=== PATIENT | female | born 1940 | race Caucasian/White ===

== ENCOUNTER → 2016-12-10 11:59 | Outpatient (CLI) | payer MEDICARE, BC ==
[2011-01-05 13:34] VITALS: BMI 25.0
[~2016-12-10 11:59] MED LIST: BAYER CHEWABLE81 MG PO; CARAFATE1 G PO; GABAPENTIN100 MG PO; LOPRESSOR25 MG PO; METOPROLOL TART25 MG PO; NEXIUM40 MG PO; NORVASC10 MG PO; PRINIVIL10 MG PO; PROPAFENONE HC150 MG PO; VALIUM5 MG PO; ZOFRAN ODT4 MG/UDTAB PO
[2016-12-15 03:57] VITALS: BMI 25.1
== END | disposition home or self-care (01) ==
LOC: D.LAB 11:30
PROVIDERS: Internal Medicine Gastroenterology
DX: R19.7 Diarrhea, unspecified (principal)

== ENCOUNTER 2016-12-15 03:50 | Observation (INO) | payer MEDICARE, BC ==
[~2016-12-15] VITALS: Ht 170.2 cm; Wt 72.7 kg
[2016-12-15 03:57] VITALS: BP 130/65; Ht 170.2 cm; Wt 72.7 kg
[2016-12-15] MEDS ORDERED: NORVASC10 MG PO (04:45)
[2016-12-15] MEDS ORDERED: VALIUM5 MG PO (04:47)
[2016-12-15] MEDS ORDERED: GABAPENTIN100 MG PO (04:47)
[2016-12-15] MEDS ORDERED: PRINIVIL10 MG PO (04:49)
[2016-12-15] MEDS ORDERED: LOPRESSOR25 MG PO (04:53)
[2016-12-15] MEDS ORDERED: METOPROLOL TART25 MG PO (04:54)
[2016-12-15] MEDS ORDERED: ZOFRAN ODT4 MG/UDTAB PO (04:55)
[2016-12-15] MEDS ORDERED: PROPAFENONE HC150 MG PO (04:56)
[2016-12-15] MEDS ORDERED: BAYER CHEWABLE81 MG PO (04:57)
[2016-12-15] MEDS ORDERED: NEXIUM40 MG PO (04:58)
[2016-12-15] MEDS ORDERED: CARAFATE1 G PO (04:59)
--- NOTE | 2016-12-15 07:30 | NUR ---
RECIEVED PT DURING WALKING ROUNDS, PT RESTING IN BED WITH NO COMPLAINTS OF PAIN OR DISCOMFORT AT THIS TIME. ASSESSMENT DONE PER FLOWSHEET. BED IN LOW POSITION AND CALL LIGHT WITHIN REACH. WILL CONTINUE TO MONITOR.
[2016-12-15 07:52] VITALS: BP 123/50
--- NOTE | 2016-12-15 11:25 | NUR ---
PT RETURNED TO FLOOR FROM GI LAB. PT RESTING IN BED WITH NO VISABLE SIGNS OF PAIN OR DISCOMFORT AT THIS TIME. BED IN LOW POSITION AND CALL LIGHT WITHIN REACH. WILL CONTINUE TO [facility].
[2016-12-15 12:35] VITALS: BP 125/57
[2016-12-15 15:53] VITALS: BP 115/50
--- NOTE | 2016-12-15 19:59 | NUR ---
PT DISCHARGE PAPERWORK GIVEN AND SIGNED. IV D/C'D WITH CATHETER TIP INTACT. PT WHEELED DOWN TO AWAITING CLOUD OPERATIONS ENGINEER VIA [employer].
--- NOTE | 2016-12-16 08:17 | OP ---
PATIENT NAME: RUSTY SANDERS MEDICAL RECORD: [id number] :38 LOCATION:D.MS [id number] ADMISSION DATE:12/15/16 SURGEON: CHACHO CARTER DO DATE OF OPERATION: 12/15/2016 PROCEDURE: EGD with balloon dilation and biopsies. INDICATIONS FOR PROCEDURE: Epigastric and right upper quadrant pain, as well as possible food bolus. SCOPE: Olympus video gastroscope. MEDICATIONS: Propofol 100 mg IV per anesthesia. ESTIMATED BLOOD LOSS: Minimal. COMPLICATIONS: None. FINDINGS: Informed consent was given. The patient was made comfortable with the above medication. After reaching an adequate level of sedation by slow IV push, the patient was placed on her left side. The endoscope was advanced under direct visualization through the mouth down to the second portion of the duodenum. The upper, middle, and lower thirds of the esophagus appeared normal. Near the GE junction, there was some irritation and some telangiectatic findings consistent with possible food sticking in the distal esophagus just proximal to a stenosis/stricture. The stricture appeared to be approximately 14 mm in diameter and the endoscope was passed through this site easily without dilation. It appeared to be a benign stricture related to reflux. There was some reflux esophagitis noted just distal to this site and the stricture. The endoscope was advanced beyond the GE junction into the stomach and retroflexed to view the cardia where a small to medium size hiatal hernia was present. There was a sliding type hernia. The body and antrum of the stomach appeared normal as did the prepyloric region. Two random biopsies were taken to submit for histology and to rule out H. pylori. The endoscope was advanced beyond the pylorus into the duodenum where the bulb and second portion of the duodenum appeared normal. The scope was withdrawn back into the stomach and a 16-18 mm CRE dilating balloon was placed through the scope. The scope was brought back up to the side of the stenosis/stricture and dilation was performed up to 18 mm successfully. The scope was then withdrawn from the patient. The patient tolerated the procedure well and there were no complications. IMPRESSION: Esophageal stricture/stenosis, which was benign and intrinsic and likely related to reflux. Dilation was performed at 18 mm. PLAN AND RECOMMENDATIONS: 1. Return to floor. 2. Continue antacid therapy with Protonix 40 mg daily. 3. Add Carafate suspension 1 gram q.a.c. and h.s. times 2 weeks. 4. Consider repeat endoscopy in 8-12 weeks to assure improvement in this condition and consider repeat dilation if indicated. TRANSINT:[id number] Voice Confirmation ID: [id number] DOCUMENT ID: [id number] OPERATIVE REPORT [id number] RUSTY SANDERS NATHAN A DO at 0817 CC: [id number] DICTATION DATE: 12/15/16 1059 COARSE WIRE DRAWER: 12/15/16 1116 DIS IN 12/15/16 [facility] [address] [place] [address]
== END 2016-12-15 20:00 | disposition home or self-care (01) ==
LOC: OBSVTIME 03:50 → D.MS 03:50
PROVIDERS: ADMIT Family Medicine
DX: K22.2 Esophageal obstruction (principal); K21.0 Gastro-esophageal reflux disease with esophagitis

== ENCOUNTER 2016-12-19 13:19 | Emergency (ER) | payer MEDICARE, BC ==
[2016-12-15 03:57] VITALS: BMI 25.1
== END 2016-12-19 15:48 | disposition home or self-care (01) ==
LOC: D.ER 13:19
DX: R13.10 Dysphagia, unspecified (principal); R09.89 Other specified symptoms and signs involving the circulatory and respiratory systems; F41.9 Anxiety disorder, unspecified; R11.2 Nausea with vomiting, unspecified; I48.0 Paroxysmal atrial fibrillation; I10 Essential (primary) hypertension

== ENCOUNTER 2017-03-06 11:53 | Inpatient (IN) | payer MEDICARE, BC ==
[~2017-03-06] VITALS: Ht 170.2 cm; Wt 70.6 kg
[2017-03-06 12:48] LABS: BASOPHILS 0.3 % (0-2); EOSINOPHILS 0.8 % (0-7); HEMATOCRIT 39.4 % (36.0-48.0); HEMOGLOBIN 12.7 g/dL (12-16); IMMATURE GRANULOCYTES 0.7 % (0-5); LYMPHOCYTES 12.3 % (15-50); MCH 29.6 pg (26.0-34.0); MCHC 32.2 g/dL (31.0-37.0); MCV 91.8 fL (80.0-100.0); MEAN PLATELET VOLUME 11.4 fL (7.4-10.4); MONOCYTES 10.3 % (2-11); NEUTROPHILS 75.6 % (40-80); PLATELET COUNT 182 10x3/uL (130-400); RBC 4.29 10x6/uL (4.00-5.40); WBC 7.7 10x3/uL (4.8-10.8)
[2017-03-06 13:07] LABS: ALBUMIN 3.2 g/dL (3.4-5.0); ANION GAP 14.4 mmol/L (8-16); BILIRUBIN - TOTAL 0.34 mg/dL (0.2-1.3); CALCIUM 8.9 mg/dL (8.5-10.1); CARBON DIOXIDE 22.6 mmol/L (21.0-32.0); CREATININE - SERUM 6.6 mg/dL (0.6-1.3); PROTEIN - SERUM 7.2 g/dL (6.4-8.2)
[2017-03-06 16:51] LABS: MAGNESIUM - SERUM 1.3 mg/dL (1.8-2.4); PHOSPHOROUS 6.5 mg/dL (2.5-4.9)
[2017-03-06 17:02] VITALS: BP 85/41; BMI 23.5
--- NOTE | 2017-03-06 17:09 | NUR ---
PT TO ROOM ADMISSION COMPLETE. PT BP IS LOW, BOLUS IS FINISHING FROM ER. AWARE. PT IS NOT SYMPTOMATIC. ALERT AND ORIENTED. SCDS APPLIED BILAT LEGS ARE PATENT. FAMILY AT BEDSIDE
[2017-03-06] MEDS ORDERED: HYDRALAZINE HCL50 MG PO (17:12)
[2017-03-06] MEDS ORDERED: PROPAFENONE HC150 MG PO (17:15)
[2017-03-06] MEDS ORDERED: ED-SPAZ0.125 MG PO (17:15)
--- NOTE | 2017-03-06 18:05 | NUR ---
GREENS KEEPER JUDY CAME UP TO ME AND NOTIFIED ME THAT PT HAD 5.3 SECOND PAUSE AND A 3RD DEGREE HEART BLOCK.. CALLED LEANDER AMEZCUA, SHE SAID CONSULT CARDIOLOGY. ARIN HERNANDEZ
--- NOTE | 2017-03-06 18:07 | NUR ---
SPOKE WITH DR HINKLE, HE SAID SINCE PT IS UNSYMPTOMATIC AT THIS TIME THEN TO KEEP AN EYE ON PT AND LET HIM KNOW IF ANYTHING CHANGES. NOTIFIED HOT BOX SPOTTER
--- NOTE | 2017-03-06 20:01 | NUR ---
PT LYING IN BED, AWAKE, ALERT, ORIENTED, C/O ABDOMINAL DISCOMFORT, BUT NO OTHER NEEDS. WILL CONTINUE TO MONITOR CLOSELY. BED LOW, CALL LIGHT IN REACH, SIDE RAILS X 2, HOB 30 DEGREES.
[2017-03-06 20:10] VITALS: BP 100/38
[2017-03-07 00:34] VITALS: BP 80/32
--- NOTE | 2017-03-07 02:51 | NUR ---
DR. AMANDA DID GIVE A VERBAL ORDER TO INCREASE PTS NS INFUSION TO 150MLS/HR WHILE HE WAS ROUNDING 03/06/17 @ 19:30. ORDER HAS BEEN ENTERED, FLUIDS WERE INCREASED AND STILL RUNNING AT 150MLS/HR. PT HAS HAD A BOUT OF EXPLOSIVE DIARRHEA, GREEN/BRIGHT YELLOW IN COLOR AND HAS BEGUN TO HAVE MINIMAL URINE OUTPUT WELL. PT IS CURRENTLY RESTING COMFORTABLY, EYES CLOSED, RESPIRATIONS EVEN AND UNLABORED AT THIS TIME. PT IS EASILY ROUSABLE TO VERBAL STIMULI. EARLIER IN THIS SHIFT, WHEN PT HAD DIARRHEA, SHE STATED THAT IT LOOKED SIMILAR TO THE TIME SHE HAD A SALMONELLA INFECTION. HER STOOL WAS NOT ODOROUS, NOR WAS THERE ANY VISIBLE BLOOD PRESENT AT THAT TIME. SIVA MATHEW HAS BEEN ADVISED TO COLLECT A URINE AND STOOL SPECIMEN WHEN POSSIBLE. THIS NURSE WILL ALSO DO THE SAME. CONTINUE TO MONITOR CLOSELY.
[2017-03-07 04:32] VITALS: BP 75/30
[2017-03-07 05:57] LABS: BASOPHILS 0.2 % (0-2); EOSINOPHILS 1.8 % (0-7); HEMATOCRIT 34.8 % (36.0-48.0); HEMOGLOBIN 11.4 g/dL (12-16); IMMATURE GRANULOCYTES 0.5 % (0-5); MCH 29.7 pg (26.0-34.0); MCHC 32.8 g/dL (31.0-37.0); MCV 90.6 fL (80.0-100.0); MEAN PLATELET VOLUME 11.9 fL (7.4-10.4); MONOCYTES 11.2 % (2-11); NEUTROPHILS 69.3 % (40-80); PLATELET COUNT 177 10x3/uL (130-400); RBC 3.84 10x6/uL (4.00-5.40); RDW 15.1 % (11.5-14.5)
[2017-03-07 06:00] LABS: WBC 5.5 10x3/uL (4.8-10.8)
--- NOTE | 2017-03-07 06:01 | NUR ---
PT HAS BEEN RESTING COMFORTABLY, EYES CLOSED, RESPIRATIONS EVEN AND UNLABORED. PT IS EASILY ROUSABLE TO VERBAL STIMULI, DENIES ANY NEEDS. I HAVE REMINDED PT TO ALWAYS CALL FOR ASSISTANCE BEFORE GETTING UP, HER B/P HAS REMAINED LOW THIS SHIFT, AND I DO NOT WANT HER TO FALL OR BECOME DIZZY. PT VERBALLY AGREED TO DO SO. CONTINUE TO MONITOR CLOSELY. BED LOW, CALL LIGHT IN REACH, SIDE RAILS X 2, HOB 20 DEGREES, SCD'S ON.
[2017-03-07 06:19] LABS: ALBUMIN 2.8 g/dL (3.4-5.0); ANION GAP 17.2 mmol/L (8-16); BILIRUBIN - TOTAL 0.18 mg/dL (0.2-1.3); CALCIUM 8.2 mg/dL (8.5-10.1); CARBON DIOXIDE 19.9 mmol/L (21.0-32.0); MAGNESIUM - SERUM 1.2 mg/dL (1.8-2.4); POTASSIUM - SERUM 3.1 mmol/L (3.5-5.1); PROTEIN - SERUM 6.4 g/dL (6.4-8.2)
--- NOTE | 2017-03-07 07:29 | NUR ---
PT SITTING UP IN BED STATES "MY IV HAS BEEN BEEPING ALL NIGHT AND NO ONE WILL FIX IT!". PIV IS IN LEFT AC, VERY POSITIONAL. WILL RESITE PT PER HER REQUEST
[2017-03-07 08:56] VITALS: BP 92/38
--- NOTE | 2017-03-07 09:03 | NUR ---
DC PIV IN LEFT AC WITH CATH TIP INTACT. SITED PT TO R FA 22G X1 STICK, FLUIDS RUNNING WITHOUT ANY ISSUES. RECEIVED A PHONE CALL FROM A MARIANNA, WHO CLAIMED THAT SHE WAS PTS STEP DAUGHTER AND SHE WAS IN THE HOSPITAL HERSELF AT [facility] AND THAT SHE WANTED AN UPDATE ON THE PT. THIS PERSON IS NOT ON PT CONTACT INFORMATION. WENT TO TALK TO PT AND ASKED HER IF I COULD TALK TO THIS PERSON, SHE SAID THAT SHE DID NOT WANT ANY INFORMATION GIVEN TO THIS PERSON. TOLD THE PERSON CALLING THAT SHE WAS NOT ON THIS PT CHART I COULD NOT GIVE HER ANY INFORMATION REGUARDING THE PT. THIS CALLER GOT UPSET CLAIMING "WELL I AM HER STEPDAUGHTER I AM FAMILY. I SHOULD BE AUTHORIZED". I EXPLAINED TO HER THAT WE COULD ONLY GIVE OUT INFORMATION TO PEOPLE THAT ARE ON THE PT HIPPA LIST AND SHE IS NOT. CALLER HUNG UP
--- NOTE | 2017-03-07 10:26 | NUR ---
PHARMACY IS BRINGING UP SODIUM BICARB, SOON AVAILABLE WILL HANG.
[2017-03-07 10:45] VITALS: Ht 170.2 cm; Wt 70.6 kg
--- NOTE | 2017-03-07 10:45 | NUR ---
PT IS RECEIVING ECHO AT THIS TIME. WILL GIVE HANG SODIUM BICARB WHEN SHE IS FINSIHED
[2017-03-07 11:39] VITALS: BP 105/51
[2017-03-07 13:52] LABS: APPEARANCE CLOUDY (CLEAR); BACTERIA MODERATE /hpf (NONE SEEN); BILIRUBIN NEGATIVE (NEGATIVE); COLOR YELLOW (YELLOW); GLUCOSE NEGATIVE (NEGATIVE); GRANULAR CAST 0-5 /lpf (NONE SEEN); HYALINE CAST OCC /lpf (NONE SEEN); KETONE NEGATIVE (NEGATIVE); NITRITE NEGATIVE (NEGATIVE); PROTEIN 1+ mg/dL (NEGATIVE); RED CELLS - URINE 0-5 /hpf (0-5); UROBILINOGEN NORMAL (NORMAL); WHITE CELLS - URINE 25-50 /hpf (0-5)
[2017-03-07 13:56] LABS: UDS - AMPHET NEGATIVE QUAL (NEGATIVE); UDS - BARB NEGATIVE QUAL (NEGATIVE); UDS - BENZO POSITIVE QUAL (NEGATIVE); UDS - COCAINE NEGATIVE QUAL (NEGATIVE); UDS - OPIATE POSITIVE QUAL (NEGATIVE); UDS - PCP NEGATIVE QUAL (NEGATIVE); UDS - THC NEGATIVE QUAL (NEGATIVE)
[2017-03-07 15:42] VITALS: BP 114/51
--- NOTE | 2017-03-07 16:57 | EC ---
PATIENT:RUSTY SANDERS DATE OF SERVICE: 03/06/17 SEX: F MEDICAL RECORD: [id number] DATE OF : 38 LOCATION:D.M2 D.210 AGE OF PATIENT: 77 ADMISSION DATE: 03/06/17 REFERRING PHYSICIAN: INTERPRETING PHYSICIAN: YOLETTE VILLATORO MD ECHOCARDIOGRAM REPORT ECHO CHARGES 4 ECHO COMPLETE CLINICAL DIAGNOSIS: HYPOTENSION HX OF HI ECHOCARDIOGRAPHIC MEASUREMENTS (adult normal given) AC root (d.<3.7cm) 3.9 cm LV Septum d (<1.2 cm> 1.0 cm Valve Excursion 1.4 cm LV Septum (systole) 1.4 cm Left Atria (s.<4.0cm> 2.8 cm LVPW d(<1.2cm) 1.4 cm RV (d.<2.3cm) 3.2 cm LVPW (sytole) 1.6 cm LV diastole(<5.6CM) 5.2 cm MV E-F(>70mm/sec) cm LV systole 3.9 cm LVOT Diameter 1.8 cm MV exc.(>10mm) cm Est.ejection fraction (50-75%) % Pericardial Effusion N DOPPLER: LVIT cm/sec A 116 cm/sec E 77.0 cm/sec LA cm/sec RVSP 27 mmHg LVOT 109 cm/sec AOP1/2T m/s Asc. Ao 126 cm/sec RVOT 129 cm/sec RA cm/sec PA 141 cm/sec AV Gradient Peak 6.33 mmHg AV Mean 3.35 mmHg AV Area 2.4 cm MV Gradient Peak 10.54mmHg MV Mean 3.15 mmHg MV Area cm COMMENTS: Mailroom Coordinator: Ivis MARRUFO Adjunct Faculty: 2 Dr. Peraza TAPE# PACS DATE OF SERVICE: 03/07/2017 FINDINGS: 1. Left ventricular chamber size is within normal limits. Left ventricular systolic function is normal. Overall ejection fraction estimated at 60%. 2. Left atrium, right atrium, and right ventricular chamber sizes are within normal limits. 3. Valvular structures have normal structure and motion. 4. Doppler interrogation only reveals mild tricuspid regurgitation. No other valvular insufficiency or stenosis. ECHOCARDIOGRAM REPORT [id number] RUSTY SANDERS 5. No evidence of pericardial effusion or left ventricular thrombus. TRANSINT:[id number] Voice Confirmation ID: [id number] DOCUMENT ID: [id number] YOLETTE VILLATORO MD at 1657 CC: [id number] DICTATION DATE: 03/07/17 1334 CERTIFIED MAINTENANCE WELDER: 03/07/17 1342 ADM IN [place] [id number] [place] [id number]
--- NOTE | 2017-03-07 18:01 | NUR ---
PT LAYING FLAT IN BED SLEEPING NO S/S DISTRESS NOTED RR EVEN AND UNLABORED
--- NOTE | 2017-03-07 19:36 | NUR ---
PT IN BED RESTING. AROUSES TO VOICE. PROVIDED ICE WATER PER REQUEST. DENIES FURTHER NEEDS AT THIS TIME.
[2017-03-07 21:06] VITALS: BP 125/49
[2017-03-08 00:34] VITALS: BP 146/54
[2017-03-08 04:00] VITALS: BP 120/51
--- NOTE | 2017-03-08 05:42 | NUR ---
SLEEPING, RR EVEN AND UNLABORED. NO S&S ACUTE DISTRESS NOTED. BED LOW AND LOCKED, CALL LIGHT IN REACH. WILL CPOC.
--- NOTE | 2017-03-08 07:39 | NUR ---
PT LAYING FLAT IN BED SLEEPING NO S/S DISTRESS NOTED RR EVEN AND UNLABORED WILL CONT TO MONITOR
[2017-03-08 07:49] LABS: BASOPHILS 0.4 % (0-2); EOSINOPHILS 1.7 % (0-7); HEMATOCRIT 34.6 % (36.0-48.0); HEMOGLOBIN 11.4 g/dL (12-16); IMMATURE GRANULOCYTES 0.9 % (0-5); LYMPHOCYTES 16.3 % (15-50); MCH 29.3 pg (26.0-34.0); MCHC 32.9 g/dL (31.0-37.0); MCV 88.9 fL (80.0-100.0); NEUTROPHILS 70.7 % (40-80); PLATELET COUNT 181 10x3/uL (130-400); RBC 3.89 10x6/uL (4.00-5.40); RDW 14.8 % (11.5-14.5); WBC 4.6 10x3/uL (4.8-10.8)
[2017-03-08 08:00] VITALS: BP 119/59
[2017-03-08 08:00] LABS: ALBUMIN 2.6 g/dL (3.4-5.0); BILIRUBIN - TOTAL 0.23 mg/dL (0.2-1.3); CALCIUM 8.3 mg/dL (8.5-10.1); MAGNESIUM - SERUM 1.1 mg/dL (1.8-2.4); POTASSIUM - SERUM 3.1 mmol/L (3.5-5.1); PROTEIN - SERUM 6.1 g/dL (6.4-8.2)
[2017-03-08 08:01] LABS: CARBON DIOXIDE 27.1 mmol/L (21.0-32.0)
--- NOTE | 2017-03-08 09:45 | NUR ---
PT WITH NO IV ACCESS. SITED PT TO LEFT FA 22G X2 STICKS. PT TOLERATED WELL. FLUIDS INFUSING NO PROBLEMS. DSNG CDI SWAB CAPS IN USE.
--- NOTE | 2017-03-08 11:21 | NUR ---
WILL HANG NEW IV FLUIDS ONCE AVAILABLE FROM PHARMACY
[2017-03-08 16:00] VITALS: BP 146/82
--- NOTE | 2017-03-08 17:46 | NUR ---
PT SITTING UP IN BED DENIES NEEDS.
--- NOTE | 2017-03-08 18:38 | NUR ---
PT REQUESTED TYLENOL FOR HER HEADACHE. PT WAS ASKING ABOUT IF SHE COULD HAVE SOME COFFEE, SHE THINKS IT MAY BE A VIZCARRA R/T NOT HAVING ANY CAFFEINE. GIVEN PT COFFEE. PT DENIES ANY OTHER NEEDS.
--- NOTE | 2017-03-08 19:15 | NUR ---
ALERT/AWAKE TALKING ON PHONE. RATES HEADACHE PAIN LEVEL AT 4 ON NUMBER SCALE. REQUESTED CUP OF COFFEE, STATING SHE IS USED TO DRINKING 3-4 POTS OF COFFEE DAILY AND ASSOCIATES HEADACHE WITH NOT HAVING ANY COFFEE TODAY. NO OTHER NEEDS VOICED. IV L FA INTACT/PATENT WITH IVF INFUSING AT 75ML/HR. TELEMETRY SHOWS 77 SR. DOES NOT WANT SCD'S ON. ORIENTED TO CALL LIGHT FOR ANY NEEDS.
--- NOTE | 2017-03-08 21:00 | NUR ---
ADMIN SCHED MED WITH SIPS OF WATER. NO OTHER NEEDS VOICED. HER IS PRESENT IN ROOM. NO QUESTIONS OR CONCERNS VOICED.
[2017-03-08 21:24] VITALS: BP 149/78
--- NOTE | 2017-03-08 23:32 | NUR ---
ADMIN ZOFRAN 4MG IV FOR C/O NAUSEA.
[2017-03-09] VITALS (7 sets, daily range): BP systolic 98–147; BP diastolic 50–78
--- NOTE | 2017-03-09 01:15 | NUR ---
C/O "HEADACHE", STATING THIS IS SYMPTOM OF HIGH B/P. DID A MANUAL B/P CHECK AND FOUND IT TO BE 182/102. CALLED KHOA WHITFIELD RN" AND STATED TO CALL RENAL MD. CALLED AND RECEIVED ORDER TO GIVE PATIENT'S HOME MEDICATION HYDRALAZINE 50MG PO, METOPROLOL 25MG PO AND RHYTHMOL 150MG PO.
--- NOTE | 2017-03-09 01:45 | NUR ---
AMBULATING BACK TO BED FROM BATHROOM. ADMIN B/P MED'S PULLED BY KHOA WHITFIELD RN". WILL CONT TO MONITOR.
--- NOTE | 2017-03-09 02:00 | NUR ---
REPORT RECIEVED FROM OFF GOING RN. PT RESTING WITH NO DISTRESS. CPOC.
--- NOTE | 2017-03-09 04:44 | NUR ---
PT AWAKE AND C/O HEADACHE. MEDICATED WITH TYLENOL 500MG BY MOUTH. WILL MONITOR.
[2017-03-09 05:06] LABS: BASOPHILS 0.2 % (0-2); EOSINOPHILS 1.2 % (0-7); HEMOGLOBIN 11.2 g/dL (12-16); IMMATURE GRANULOCYTES 0.5 % (0-5); LYMPHOCYTES 12.7 % (15-50); MCH 29.2 pg (26.0-34.0); MCHC 32.9 g/dL (31.0-37.0); MCV 88.8 fL (80.0-100.0); MEAN PLATELET VOLUME 11.4 fL (7.4-10.4); MONOCYTES 8.9 % (2-11); NEUTROPHILS 76.5 % (40-80); PLATELET COUNT 200 10x3/uL (130-400); RBC 3.83 10x6/uL (4.00-5.40); RDW 14.8 % (11.5-14.5); WBC 6.6 10x3/uL (4.8-10.8)
[2017-03-09 05:32] LABS: ALBUMIN 2.7 g/dL (3.4-5.0); ANION GAP 11.6 mmol/L (8-16); BILIRUBIN - TOTAL 0.29 mg/dL (0.2-1.3); CALCIUM 8.5 mg/dL (8.5-10.1); CARBON DIOXIDE 25.1 mmol/L (21.0-32.0); CREATININE - SERUM 1.3 mg/dL (0.6-1.3); PHOSPHOROUS 2.2 mg/dL (2.5-4.9); POTASSIUM - SERUM 3.7 mmol/L (3.5-5.1); PROTEIN - SERUM 6.2 g/dL (6.4-8.2)
--- NOTE | 2017-03-09 07:20 | NUR ---
AM ROUNDS- PT IN BED, DENIES ANY NEEDS AT THIS TIME. STATES SHE DID NOT GET ANY SLEEP LAST NIGHT, FEELS TIRED. RESP EVEN AND UNLABORED. LT FA IV INFUSING D51/2NS+20KCL AT 75CC/HR. BED LOW AND WHEELS LOCKED, BEDSIDE RAILS X2, BED ALARM ON, CALL LIGHT IN REACH, NAD NOTED, WILL CONTINUE TO MONITOR.
--- NOTE | 2017-03-09 08:40 | NUR ---
AM MEDS GIVEN AND 4MG OF ZOFRAN PER PT REQUEST. HELD BP MEDS DUE TO LOW BP. PT IN BED, DENIES ANY OTHER NEEDS AT THIS TIME. CALL LIGHT IN REACH, NAD NOTED, WILL CONTINUE TO MONITOR.
--- NOTE | 2017-03-09 13:34 | NUR ---
PT IN BED, TALKING ON THE PHONE, STATES HER PT LEVEL NOW 2/10. PT DENIES ANY NEEDS AT THIS TIME. CALL LIGHT IN REACH, NAD NOTED, WILL CONTINUE TO MONITOR.
--- NOTE | 2017-03-09 14:52 | NUR ---
WENT TO ADMINISTER VALIUM ORDER, PT REFUSED VALIUM STATED " I ONLY TAKE IT ONCE A DAY." PT DENIES ANY NEEDS AT THIS TIME. CALL LIGHT IN REACH, NAD NOTED, WILL CONTINUE TO MONITOR.
--- NOTE | 2017-03-09 17:32 | NUR ---
PT IN BED, FIXING TO EAT DINNER, DENIES ANY NEEDS AT THIS TIME. CALL LIGHT IN REACH, NAD NOTED, WILL CONTINUE TO MONITOR.
--- NOTE | 2017-03-09 19:44 | NUR ---
RECEIVED REPORT, WILL ASSUME CARE OF PT, PT LYING QUIETLY IN ROOM WITH LIGHTS OFF, DENIES ANY NEEDS, BED IS LOW, SRX2, CALL LIGHT IN REACH, WILL CONTINUE PLAN OF CARE
[2017-03-10 05:03] LABS: BASOPHILS 0.5 % (0-2); EOSINOPHILS 2.2 % (0-7); HEMATOCRIT 34.1 % (36.0-48.0); HEMOGLOBIN 10.8 g/dL (12-16); IMMATURE GRANULOCYTES 0.9 % (0-5); LYMPHOCYTES 16.6 % (15-50); MCHC 31.7 g/dL (31.0-37.0); MEAN PLATELET VOLUME 11.6 fL (7.4-10.4); MONOCYTES 10.1 % (2-11); NEUTROPHILS 69.7 % (40-80); PLATELET COUNT 199 10x3/uL (130-400); RBC 3.72 10x6/uL (4.00-5.40); WBC 5.9 10x3/uL (4.8-10.8)
--- NOTE | 2017-03-10 05:10 | NUR ---
ASSESSMENT COMPLETE, PT DENIES ANY NEEDS, BED IS LOW, SRX2, CALL LIGHT IN REACH
[2017-03-10 05:11] LABS: MCV 91.7 fL (80.0-100.0)
[2017-03-10 05:20] VITALS: BP 106/46
[2017-03-10 05:41] LABS: ALBUMIN 2.4 g/dL (3.4-5.0); BILIRUBIN - TOTAL 0.21 mg/dL (0.2-1.3); CALCIUM 8.3 mg/dL (8.5-10.1); CARBON DIOXIDE 24.3 mmol/L (21.0-32.0); CREATININE - SERUM 1.3 mg/dL (0.6-1.3); PHOSPHOROUS 2.6 mg/dL (2.5-4.9); PROTEIN - SERUM 5.8 g/dL (6.4-8.2)
[2017-03-10 05:43] LABS: ANION GAP 12.1 mmol/L (8-16); POTASSIUM - SERUM 4.4 mmol/L (3.5-5.1)
--- NOTE | 2017-03-10 07:32 | NUR ---
ROUNDING DONW WITH PATIENT APEARING BE TO ALSEEP. RESP ARE EVEN AND NON LABORED. LEFT FA SEENW TIH D 5 1/2 NS W 10 K INFUSING AT 75 WITHOUT PROBLEMS. ON ROOM AIR. ON HEART MONITOR SHOWING SR, HR 62. PATIENT HAS A PACEMAKER. WILL MONITOR.
[2017-03-10 08:23] VITALS: BP 112/64
[2017-03-10 11:55] VITALS: BP 100/55
--- NOTE | 2017-03-10 13:05 | NUR ---
1247-NYSTATIN GIVEN ORDERED.
--- NOTE | 2017-03-10 13:49 | NUR ---
Nutrition follow-up: Visited with pt during meal rounds. Helped pt fill out menus for today. Pt happy with meals at this time. Diet: Regular PO intake ~25% of meals wt: 153# Will continue to encourage increased po intake by honoring food preferences and provided food choices. RDN following.
[2017-03-10 15:53] VITALS: BP 135/64
--- NOTE | 2017-03-10 16:54 | NUR ---
DENIES NEEDS AT PRESENT TIME. EATING SUPPER. WAS GIVEN TYLENOL EARILER FOR HEADCHE WHICH SHE REPORTS IS BETTER. WILL CONTINUE TO MONITOR.
[2017-03-10 19:00] VITALS: BP 146/65
--- NOTE | 2017-03-10 19:45 | NUR ---
PATIENT IS ALERT IN BED WATCHING TV, DENIES NEEDS OR PAIN AT THIS TIME. CALL LIGHT IS IN REACH.
[2017-03-11] VITALS: BP 114/49
[2017-03-11 04:00] VITALS: BP 122/46
[2017-03-11 04:53] LABS: BASOPHILS 0.4 % (0-2); HEMATOCRIT 32.6 % (36.0-48.0); HEMOGLOBIN 10.4 g/dL (12-16); IMMATURE GRANULOCYTES 1.3 % (0-5); LYMPHOCYTES 16.3 % (15-50); MCH 29.3 pg (26.0-34.0); MCHC 31.9 g/dL (31.0-37.0); MCV 91.8 fL (80.0-100.0); MEAN PLATELET VOLUME 11.6 fL (7.4-10.4); MONOCYTES 9.8 % (2-11); NEUTROPHILS 69.2 % (40-80); PLATELET COUNT 187 10x3/uL (130-400); RBC 3.55 10x6/uL (4.00-5.40); RDW 14.9 % (11.5-14.5); WBC 5.4 10x3/uL (4.8-10.8)
[2017-03-11 05:16] LABS: ALBUMIN 2.4 g/dL (3.4-5.0); ANION GAP 12.3 mmol/L (8-16); BILIRUBIN - TOTAL 0.2 mg/dL (0.2-1.3); CALCIUM 8.6 mg/dL (8.5-10.1); CARBON DIOXIDE 23.7 mmol/L (21.0-32.0); CREATININE - SERUM 1.1 mg/dL (0.6-1.3); PROTEIN - SERUM 5.5 g/dL (6.4-8.2)
[2017-03-11 05:19] LABS: PHOSPHOROUS 3.3 mg/dL (2.5-4.9)
--- NOTE | 2017-03-11 07:03 | NUR ---
0700- AM ROUNDING DONE WITH PATIENT APPEARING TO BE ALSEEP IN THE BED. RESP ARE EVEN AND NON LABORED. ON HEART MONITOR SHOWING SR, HR 70. ON ROOM AIR. LEFT FA SEEN WITH SALINE LOCK. WILL MONITOR.
[2017-03-11 08:35] VITALS: BP 123/70
[2017-03-11 12:02] VITALS: BP 128/66
--- NOTE | 2017-03-11 15:32 | NUR ---
4685-ON CELL PHONE, DENIES NEEDS WHEN ASKED. WILL CONTINUE TO MONITOR.
--- NOTE | 2017-03-11 17:22 | NUR ---
ON CELL PHONE EATING SUPPER. DENIES ANY NEEDS AT THIS TIME. PM MEDS GIVEN. WILL CONTINUE TO MONITOR.
--- NOTE | 2017-03-11 19:15 | NUR ---
PT IN BED RESTING QUIETLY. DENIES ANY PAIN OR NEEDS AT THIS TIME. BED IN LOW POSITION, CALL LIGHT WITHIN REACH.
[2017-03-11 21:28] VITALS: BP 124/69
--- NOTE | 2017-03-12 00:17 | NUR ---
PT IN BED RESTING QUIETLY WITH EYES CLOSED. BREATHING EVEN AND UNLABORED. BED IN LOW POSITION, CALL LIGHT WITHIN REACH.
[2017-03-12 01:06] VITALS: BP 107/62
[2017-03-12 04:33] LABS: BASOPHILS 0.4 % (0-2); EOSINOPHILS 2.5 % (0-7); HEMATOCRIT 33.4 % (36.0-48.0); HEMOGLOBIN 10.6 g/dL (12-16); IMMATURE GRANULOCYTES 1.6 % (0-5); LYMPHOCYTES 15.3 % (15-50); MCH 29.2 pg (26.0-34.0); MCHC 31.7 g/dL (31.0-37.0); MEAN PLATELET VOLUME 11.1 fL (7.4-10.4); MONOCYTES 7.9 % (2-11); NEUTROPHILS 72.3 % (40-80); PLATELET COUNT 183 10x3/uL (130-400); RBC 3.63 10x6/uL (4.00-5.40); RDW 15.1 % (11.5-14.5)
[2017-03-12 04:38] VITALS: BP 102/39
[2017-03-12 04:38] LABS: WBC 6.8 10x3/uL (4.8-10.8)
[2017-03-12 04:52] LABS: ANION GAP 12.7 mmol/L (8-16); CALCIUM 8.7 mg/dL (8.5-10.1); CARBON DIOXIDE 24.1 mmol/L (21.0-32.0); CREATININE - SERUM 1.1 mg/dL (0.6-1.3); PHOSPHOROUS 3.7 mg/dL (2.5-4.9); POTASSIUM - SERUM 3.8 mmol/L (3.5-5.1)
--- NOTE | 2017-03-12 07:30 | NUR ---
AM ROUNDS COMPLETED. INTRODUCED MYSELF TO PT PRIMARY RN FOR TODAYS SHIFT. PT RESTING QUIETLY IN BED. SHIFT ASSESSMENT COMPLETED. PT DENIES ANY CURRENT PAIN OR NEEDS AT THIS TIME. CL IN REACH, BED IN LOWEST, SIDE RAILS X2 AND BUILT IN BED ALARM ON WILL CPOC.
[2017-03-12 08:34] VITALS: BP 114/52
--- NOTE | 2017-03-12 09:26 | NUR ---
MED NDC TYPED IN FOR MORNING MEDS, ALREADY SCANNED AND GIVEN HOWEVER COMPUTER DID NOT SAVE IN ROOM.
[2017-03-12 12:44] VITALS: BP 94/31
[2017-03-12 15:54] VITALS: BP 94/38
--- NOTE | 2017-03-12 17:14 | NUR ---
PT APPARENTLY C/O GAS PAIN TO AT BEDSIDE, NEW GAS RELIEF MEDICATION ORDERED HOWEVER PT NEVER TOLD ME OF THIS. WILL TREAT ORDERED AND CPOC.
--- NOTE | 2017-03-12 19:35 | NUR ---
PT IN BED RESTING QUIETLY. DENIES ANY PAIN OR NEEDS AT THIS TIME. BED IN LOW POSITOIN, CALL LIGHT WITHIN REACH.
--- NOTE | 2017-03-12 21:39 | NUR ---
PT C/O NAUSEA. PRN ZOFRAN GIVEN. DENIES ANY OTHER NEEDS AT THIS TIME. BED IN LOW POSITION, CALL LIGHT WITHIN REACH. WILL CTM.
[2017-03-12 21:42] VITALS: BP 123/48
[2017-03-13 05:20] LABS: BASOPHILS 0.3 % (0-2); EOSINOPHILS 1.9 % (0-7); HEMATOCRIT 34.2 % (36.0-48.0); IMMATURE GRANULOCYTES 1.4 % (0-5); MCH 29.4 pg (26.0-34.0); MCHC 32.2 g/dL (31.0-37.0); MCV 91.4 fL (80.0-100.0); MEAN PLATELET VOLUME 11.3 fL (7.4-10.4); MONOCYTES 9.5 % (2-11); NEUTROPHILS 74.9 % (40-80); PLATELET COUNT 199 10x3/uL (130-400); RBC 3.74 10x6/uL (4.00-5.40); RDW 14.9 % (11.5-14.5); WBC 6.4 10x3/uL (4.8-10.8)
[2017-03-13 05:46] LABS: ANION GAP 14.3 mmol/L (8-16); CALCIUM 8.3 mg/dL (8.5-10.1); CARBON DIOXIDE 23.3 mmol/L (21.0-32.0); CREATININE - SERUM 1.1 mg/dL (0.6-1.3); POTASSIUM - SERUM 3.6 mmol/L (3.5-5.1)
[2017-03-13 08:53] VITALS: BP 113/48
--- NOTE | 2017-03-13 11:00 | NUR ---
PT SITTING UP IN BED RESTING QUIETLY WITH AT BEDSIDE. PT STATES SHE IS FEELING BETTER OVERALL AND HOPES TO BE DISCHARGED TODAY. PT DENIES ANY CURRENT PAIN OR NEEDS AT THIS TIME. WILL CPOC.
[2017-03-13 11:57] VITALS: BP 112/49
--- NOTE | 2017-03-13 14:00 | NUR ---
CALLED FOR DISCHARGE PLANNING AND ORDER. IS OKAY WITH DISCHARGE AND PT TO CONTINUE AND TAKE: PROTONIX DAILY, IMMODIUM PRN, QUESTRAN BID, DAILY PROBIOTIC. PT IS TO ROOFING MACHINE OPERATOR STERIOD TAPER ORDERED AND SENT TO [facility] AND SEE HER IN CLINIC IN ONE WEEK.
[2017-03-13 15:09] VITALS: BP 118/48
[2017-03-13] MEDS ORDERED: LOPRESSOR25 MG PO (15:10)
[2017-03-13] MEDS ORDERED: PROTONIX40 MG PO (15:13)
[2017-03-13] MEDS ORDERED: GAS-X80 MG PO (15:13)
[2017-03-13] MEDS ORDERED: QUESTRAN PACK4 G/PKT PO (15:13)
[2017-03-13] MEDS ORDERED: LACTINEX C1 TAB.CHEW PO (15:13)
[2017-03-13] MEDS ORDERED: IMODIUM2 MG PO (15:14)
--- NOTE | 2017-03-13 16:16 | NUR ---
DISCHARGE TEACHING PROVIDED AND PAPERS SIGNED. D/C PTS L.FA PIV WITH CATHETER TIP FULLY INTACT. PT IS GETTING DRESSED AND COLLECTING HER BELONGINGS. 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 PT HAS DAUGHTER AT BEDSIDE TO ASSIST. WILL CALL FOR W/C WHEN SHE IS FINISHED. NO FURTHER NEEDS AT THIS TIME.
--- NOTE | 2017-03-13 17:02 | NUR ---
Patient Name: RUSTY SANDERS Admission Status: ER Accout number: [id number] Admission Date: 03-06-2017 : 1940 Admission Diagnosis:UNSPECIFIED ABDOMINAL PAIN Attending: MADHURI VORA Current LOS: 7 Anticipated DC Date: 03-13-2017 Planned Disposition: Home Primary Insurance: MEDICARE A & B Discharge Planning Comments: * Is the patient Alert and Oriented? Yes 0 * How many steps to enter\exit or inside your home? 12 0 * PCP DR. BALL 0 * Pharmacy [facility] IN [place] 0 * Preadmission Environment Home with Family 0 * ADLs Independent 0 * Equipment Rolling Walker Walker Wheelchair 0 * Other Equipment NO MEDICAL EQUIPMENT PROVIDER PREFERENCE 0 * List name and contact numbers for known caregivers / representatives who currently or will assist patient after discharge: ABHISHEK BRITTANI, SIGNIFICANT OTHER, 0 * Community resources currently utilized None 0 * Please name any agencies selected above. NONE 0 * Additional services required to return to the preadmission environment? No 0 * Can the patient safely return to the preadmission environment? Yes 0 * Has this patient been hospitalized within the prior 30 days at any hospital? No 0 CM MET WITH PT IN ROOM TO DISCUSS DISCHARGE PLANNING AND NEEDS. PT REPORTS LIVING AT HOME INDEPENDENTLY WITH SIGNIFICANT OTHER WELL OTHER FAMILY MEMBERS. PT HAVING A WHEELCHAIR, STANDARD AND ROLLING WALKERS WITH NO MEDICAL EQUIPMENT PROVIDER; PT HAS NO OUTSIDE SERVICES ASSISTING IN THE HOME. CM DISCUSSED AVAILABILITY OF HOME HEALTH, REHAB SERVICES AND MEDICAL EQUIPMENT. PT DENIES DISCHARGE NEEDS, REPORTS HER DAUGHTER WILL PICK HER UP FOR DISCHARGE HOME. IMPORTANT MESSAGE FROM MEDICARE PROVIDED AND EXPLAINED. Advertising Sales Executive: Andre Ingram
== END 2017-03-13 16:31 | disposition home or self-care (01) | DRG 314 ==
LOC: D.ER 11:53 → D.M2 15:21
PROVIDERS: Emergency Medicine; Family Medicine; Internal Medicine Nephrology; ADMIT Family Medicine
DX: I95.9 Hypotension, unspecified (principal); N17.0 Acute kidney failure with tubular necrosis; E87.2 Acidosis; E86.0 Dehydration; R13.10 Dysphagia, unspecified; E87.6 Hypokalemia; K57.90 Diverticulosis of intestine, part unspecified, without perforation or abscess without bleeding; E83.42 Hypomagnesemia; R63.0 Anorexia; Z68.23 Body mass index [BMI] 23.0-23.9, adult; K52.9 Noninfective gastroenteritis and colitis, unspecified; I07.1 Rheumatic tricuspid insufficiency; R82.71 Bacteriuria; N28.1 Cyst of kidney, acquired; I73.9 Peripheral vascular disease, unspecified; K21.9 Gastro-esophageal reflux disease without esophagitis; F41.8 Other specified anxiety disorders; R51 Headache; Z95.0 Presence of cardiac pacemaker

== ENCOUNTER 2019-08-16 06:47 | Day surgery (SDC) | payer MEDICARE, BC ==
[~2019-08-16] VITALS: Ht 165.1 cm; Wt 70.5 kg
[~2019-08-16 06:47] MED LIST changes: +ED-SPAZ0.125 MG PO; +GAS-X80 MG PO; +HYDRALAZINE HCL50 MG PO; +IMODIUM2 MG PO; +LACTINEX C1 TAB.CHEW PO; +PROTONIX40 MG PO; +QUESTRAN PACK4 G/PKT PO
[2019-08-16 07:12] LABS: BASOPHILS 0.8 % (0-2); EOSINOPHILS 3.5 % (0-7); HEMATOCRIT 42.9 % (36.0-48.0); HEMOGLOBIN 13.1 g/dL (12-16); IMMATURE GRANULOCYTES 0.8 % (0-5); MCH 27.3 pg (26.0-34.0); MCHC 30.5 g/dL (31.0-37.0); MCV 89.4 fL (80.0-100.0); MEAN PLATELET VOLUME 9.7 fL (7.4-10.4); MONOCYTES 7.5 % (2-11); NEUTROPHILS 68.4 % (40-80); PLATELET COUNT 213 10x3/uL (130-400); RDW 16.7 % (11.5-14.5); WBC 7.2 10x3/uL (4.8-10.8)
[2019-08-16 07:31] LABS: ANION GAP 10.2 mmol/L (8-16); CALCIUM 9.2 mg/dL (8.5-10.1); CARBON DIOXIDE 26.9 mmol/L (21.0-32.0); CREATININE - SERUM 1.2 mg/dL (0.6-1.3); POTASSIUM - SERUM 4.1 mmol/L (3.5-5.1)
[2019-08-16] MEDS ORDERED: COREG12.5 MG PO (07:34)
[2019-08-16] MEDS ORDERED: NEXIUM40 MG (07:35)
[2019-08-16] MEDS ORDERED: FISH OIL 1,0001 CA1 (07:36)
[2019-08-16] MEDS ORDERED: GABAPENTIN100 MG PO (07:37)
[2019-08-16 07:50] VITALS: BP 150/76; Ht 165.1 cm; Wt 70.5 kg
== END 2019-08-16 09:50 | disposition home or self-care (01) ==
LOC: D.OPS 06:47
PROVIDERS: ATTEND Internal Medicine Gastroenterology
DX: R13.10 Dysphagia, unspecified (principal); R10.13 Epigastric pain; R11.2 Nausea with vomiting, unspecified

== ENCOUNTER 2020-10-03 18:54 | Emergency (ER) | payer MEDICARE, BC ==
[~2020-10-03] VITALS: Ht 165.1 cm; Wt 75.0 kg
[~2020-10-03 18:54] MED LIST changes: +COREG12.5 MG PO; +FISH OIL 1,0001 CA1; +NEXIUM40 MG
[2020-10-03 19:03] VITALS: Ht 165.1 cm; Wt 75.0 kg
[2020-10-03] MEDS ORDERED: HYDROCHLOROTH12.5 M1 PO (19:06)
[2020-10-03] MEDS ORDERED: CLONIDINE HCL0.1 MG PO (19:07)
[2020-10-03] MEDS ORDERED: NORVASC5 MG PO (19:07)
[2020-10-03] MEDS ORDERED: COZAAR100 MG PO (19:07)
[2020-10-03] MEDS ORDERED: COREG12.5 MG PO (19:07)
[2020-10-03 19:39] VITALS: BP 137/52
[2020-10-03 19:53] LABS: BASOPHILS 1.2 % (0-2); EOSINOPHILS 1.5 % (0-7); HEMATOCRIT 41.3 % (36.0-48.0); HEMOGLOBIN 13.6 g/dL (12-16); LYMPHOCYTES 17.9 % (15-50); MCH 29.3 pg (26.0-34.0); MCV 88.6 fL (80.0-100.0); MEAN PLATELET VOLUME 8.5 fL (7.4-10.4); MONOCYTES 7.2 % (2-11); NEUTROPHILS 72.2 % (40-80); PLATELET COUNT 223 10x3/uL (130-400); RBC 4.66 10x6/uL (4.00-5.40); RDW 15.8 % (11.5-14.5); WBC 7.6 10x3/uL (4.8-10.8)
[2020-10-03 20:04] LABS: CALC OSMOLALITY 277 mosm/kg (275-300); CALCIUM 9.5 mg/dL (8.5-10.1); CARBON DIOXIDE 26.6 mmol/L (21.0-32.0); CHLORIDE - SERUM 104 mmol/L (98-107); CREATININE - SERUM 1.1 mg/dL (0.6-1.3); GLUCOSE 94 mg/dL (74-106); SODIUM 140 mmol/L (136-145); UREA NITROGEN 11 mg/dL (7-18); eGFR NON AFRICAN AMERICAN 50 mL/min (90-120)
[2020-10-03 20:17] LABS: ALBUMIN 3.8 g/dL (3.4-5.0); ALKALINE PHOSPHATASE 75 U/L (30-120); ALT (SGPT) 24 U/L (10-68); AMYLASE - SERUM 36 U/L (25-115); BILIRUBIN - TOTAL 0.47 mg/dL (0.2-1.3); LIPASE 73 U/L (73-393); PROTEIN - SERUM 7.7 g/dL (6.4-8.2)
[2020-10-03 20:18] LABS: TROPONIN-I < 0.017 ng/mL (0.000-0.060)
[2020-10-03] MEDS ORDERED: MIRALAX17 GM PO (22:35)
[2020-10-03] MEDS ORDERED: ALOPHEN PILLS5 MG PO (22:35)
[2020-10-03 23:53] LABS: BILIRUBIN NEGATIVE (NEGATIVE); KETONE NEGATIVE (NEGATIVE); NITRITE NEGATIVE (NEGATIVE); UROBILINOGEN NORMAL mg/dL (< 2)
== END 2020-10-03 23:30 | disposition home or self-care (01) ==
LOC: D.ER 18:54
PROVIDERS: Family Medicine
DX: K59.00 Constipation, unspecified (principal); R10.84 Generalized abdominal pain; I10 Essential (primary) hypertension; K21.9 Gastro-esophageal reflux disease without esophagitis